=== PATIENT | female | born 1980 | race Caucasian/White ===

== ENCOUNTER 2016-12-21 16:33 | Emergency (ER) | payer OTHER ==
[~2016-12-21] VITALS: Ht 170.2 cm; Wt 68.1 kg
[~2016-12-21 16:33] MED LIST: CLON0.5T3 PO
[2016-12-21 16:42] VITALS: Ht 170.2 cm; Wt 68.1 kg
[2016-12-21 17:15] LABS: MANUAL MICROSCOPIC REQUIRED? YES; URINE APPEARANCE CLEAR (CLEAR); URINE BILIRUBIN NEG (NEG); URINE COLOR YELLOW; URINE NITRITE NEG (NEG); URINE PH 5.5 (4.5-7.5); URINE SPECIFIC GRAVITY <= 1.005 (1.000-1.030); UROBILINOGEN NEG (NEG)
[2016-12-21 17:16] LABS: REVIEW REQ? NO
[2016-12-21 17:22] LABS: BASO % 0.3 %; BASO ABS # 0.02 K/uL (0-0.2); COMPLETE YES; EOS % 0.6 %; HEMATOCRIT 39.4 % (37-47); IG% 0.3 %; LYMPH % 31.1 %; LYMPH ABS # 1.97 K/uL (1.2-3.4); MEAN CORPUSCULAR HEMOGLOBIN 30.2 pg (25-34); MEAN CORPUSCULAR HGB CONC 34.8 g/dl (32-36); MEAN PLATELET VOLUME 10.5 fL (7.4-10.4); NEUT % 60.7 %; PLATELET COUNT 245 K/uL (130-400); RED BLOOD COUNT 4.53 M/uL (4.2-5.4); WHITE BLOOD COUNT 6.33 K/uL (4.8-10.8)
[2016-12-21 17:28] LABS: URINE BACTERIA NEG (NEG); URINE RBC 0-4 /hpf (0-4); URINE WBC 0 /hpf (0-5)
[2016-12-21 17:39] LABS: BUN/CREATININE RATIO 10.6 (10-20); CALCIUM 8.9 mg/dl (8.5-10.1); CREATININE 0.69 mg/dl (0.60-1.20); POTASSIUM 3.4 mmol/L (3.5-5.1)
[2016-12-21 17:41] LABS: BENZODIAZEPINE, URINE NEG (NEG); COCAINE,URINE NEG (NEG); PHENCYCLIDINE, URINE NEG (NEG)
[2016-12-21 17:50] LABS: ALB/GLOB RATIO 1.2 (0.9-2); THYROID STIMULATING HORMONE 1.11 uIu/ml (0.300-4.500)
[2016-12-21] MEDS ORDERED: SERT-234 PO (17:50)
[2016-12-21] MEDS ORDERED: HYDR25CA PO (17:50)
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
[2016-12-21] MEDS ORDERED: LORAZEPAM 1 MG TAB SL STA (19:29)
[2016-12-21] MEDS ORDERED: CALCIUM CARBONATE 500 MG CHEWABLE PO PRN (21:00)
[2016-12-22 02:36] VITALS: BP 121/66; PULSE 76; TEMP 36.8; O2SAT 99
== END 2016-12-22 02:37 ==
LOC: C.EDB 16:36 → C.EDA 12-22 02:37
DX: F39 Unspecified mood [affective] disorder (principal); F32.9 Major depressive disorder, single episode, unspecified; R44.0 Auditory hallucinations; R44.1 Visual hallucinations; M54.2 Cervicalgia; F17.200 Nicotine dependence, unspecified, uncomplicated

== ENCOUNTER 2019-03-13 15:54 | Inpatient (IN) ==
[2019-03-13 16:36] LABS: Basophils # (auto) 0.02 K/uL (0-0.2); Basophils % (auto) 0.3 %; Eosinophils # (auto) 0.04 K/uL (0-0.5); Eosinophils % (auto) 0.6 %; Hematocrit (blood only) 37.1 % (37-47); Hemoglobin 12.9 g/dL (12.0-16.0); Immature Granulocytes # (auto) 0.01 K/uL (0.00-0.02); Immature Granulocytes % (auto) 0.1 %; Lymphocytes # (auto) 1.56 K/uL (1.2-3.4); Lymphocytes % (auto) 22.2 %; Mean Corpuscular Hgb Conc 34.8 g/dL (32-36); Mean Corpuscular Volume 87.9 fL (80-100); Mean Platelet Volume 10.3 fL (7.4-10.4); Monocytes # (auto) 0.54 K/uL (0.11-0.59); Monocytes % (auto) 7.7 %; Neutrophils # (auto) 4.86 K/uL (1.4-6.5); Neutrophils % (auto) 69.1 %; Platelet Count 256 K/uL (130-400); RDW Coefficient of Variation 12.8 % (11.5-14.5); RDW Standard Deviation 41.5 fL (36.4-46.3); Red Blood Count 4.22 M/uL (4.2-5.4); White Blood Count 7.03 K/uL (4.8-10.8)
[2019-03-13 16:38] LABS: Appearance Urine Clear (Clear); Bacteria Urine Automated Negative (Negative); Bilirubin Urine Negative (Negative); Blood Urine 3+ (Negative); Color Urine Yellow; Epithelial Cell Urine Auto >30 /lpf (0-5); Glucose Urine UA 1+ (Negative); Ketones Urine Trace (Negative); Leukocyte Esterase Urine Negative (Negative); Nitrite Urine Negative (Negative); Protein Urine Negative (Negative); Specific Gravity Urine 1.032 (1.000-1.030); Urobilinogen Urine Negative (Negative)
[2019-03-13 16:43] LABS: Pregnancy Test, Urine Negative (Negative)
[2019-03-13 16:52] LABS: Amphetamines+Metham, Urine Neg (Neg); Barbiturates, Urine Neg (Neg); Benzodiazepine, Urine Neg (Neg); Cocaine, Urine Neg (Neg); MDMA (Ecstacy), Urine Neg (Neg); Methadone, Urine Neg (Neg); Opiate, Urine Neg (Neg); Phencyclidine, Urine Neg (Neg)
[2019-03-13 16:55] LABS: Albumin Level 3.9 gm/dl (3.4-5.0); Calcium 8.8 mg/dl (8.5-10.1); Creatinine Clr Calc Pharmacy 80.7 ml/min; Est GFR (African American) 92.1; Est GFR (Non-African American) 79.5; Potassium 4.3 mmol/L (3.5-5.1)
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
[2019-03-13 17:06] LABS: Acetaminophen 3 ug/ml (10-30); Albumin Globulin Ratio 1.1 (0.9-2); Bilirubin,Total 0.2 mg/dl (0.2-1); Globulin 3.4 gm/dl (2.5-4.0); Salicylate < 1.7 mg/dl (2.8-20); Total Protein 7.3 gm/dl (6.4-8.2)
[2019-03-13] MEDS ORDERED: ACETAMINOPHEN 500 MG TAB PO STA (19:29)
[2019-03-13] MEDS ORDERED: MAGNESIUM HYDROXIDE SUSP 30 ML UDC PO PRN (19:32)
[2019-03-13] MEDS ORDERED: BISMUTH SUBSALICYLATE PER ML OMNICELL CHARGE PO PRN (19:32)
[2019-03-13] MEDS ORDERED: SODIUM CHLORIDE 0.65% NA SOLN 45 ML (OCEAN) PRN (19:32)
[2019-03-13] MEDS ORDERED: ALUMINUM/MAGNESIUM SUSP 30 ML UDC PO PRN (19:32)
[2019-03-13] MEDS ORDERED: LORazepam 1 MG TAB PO PRN (19:36)
[2019-03-13] MEDS ORDERED: HALOPERIDOL 1 MG TAB PO PRN (19:37)
[2019-03-13] MEDS ORDERED: BENZTROPINE MESYLATE 0.5 MG TAB PO PRN (19:38)
[2019-03-13] MEDS ORDERED: AMOXICILLIN 500 MG CAP PO SCH (21:00)
[2019-03-13] MEDS: LURASIDONE HCL 40 MG TAB PO SCH (22:04)
[2019-03-13] MEDS: ACETAMINOPHEN 325 MG TAB PO PRN (23:46)
[2019-03-14] MEDS: LURASIDONE HCL 40 MG TAB PO SCH ×2 (09:00→21:47)
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
[2019-03-14] MEDS: ACETAMINOPHEN 325 MG TAB PO PRN (14:31)
[2019-03-15] MEDS: LURASIDONE HCL 40 MG TAB PO SCH ×2 (07:38→17:54)
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
[2019-03-16 08:05] LABS: Glucose Fasting 82 mg/dl (70-99)
[2019-03-16 08:11] LABS: Chol HDL Ratio 3; Cholesterol 135 mg/dl (0-200); HDL Cholesterol 52 mg/dl; LDL Cholesterol Calculated 69 mg/dl; Triglycerides 71 mg/dl (0-150); VLDL Cholesterol 14 mg/dl
[2019-03-16] MEDS: LURASIDONE HCL 40 MG TAB PO SCH (08:48)
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
[2019-03-16] MEDS ORDERED: LURASIDONE HCL 40 MG TAB PO ONE (22:00)
[2019-03-16] MEDS: ACETAMINOPHEN 325 MG TAB PO PRN (22:00)
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
[2019-03-17] MEDS ORDERED: LURASIDONE HCL 40 MG TAB PO SCH (22:00)
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
[2019-03-18] MEDS ORDERED: DESTROY THIS MEDICATION ONE (15:22)
== END 2019-03-18 13:25 | disposition home or self-care (01) | DRG 885 ==
LOC: ED 15:54 → 3S 19:33